=== PATIENT | female | born 1965 | race Caucasian/White ===

== ENCOUNTER 2023-02-28 06:55 | Outpatient (REF) | payer OTHER, SELFPAY ==
[2023-02-28 08:34] LABS: Anion Gap 14 (12-20); Blood Urea Nitrogen 12 mg/dL (9-16); Calcium 9.6 mg/dL (8.4-10.2); Carbon Dioxide 28 mmol/L (22-29); Chloride 106 mmol/L (96-108); Cholesterol 225 mg/dL; Estimated Glomerular Filt Rate > 60; Glucose Random 81 mg/dL (60-115); HDL Cholesterol 90 mg/dL; LDL Cholesterol Calculated 126 mg/dl; Potassium 4.7 mmol/L (3.3-5.1); Sodium 143 mmol/L (135-145); Triglycerides 47 mg/dL
[2023-02-28 08:52] LABS: Thyroid Stimulating Hormone 2.71 uIU/mL (0.32-4.0)
== END 2023-02-28 06:56 | disposition home or self-care (01) ==
LOC: HO.LAB 06:55
PROVIDERS: Visit Provider Family Medicine
DX: Z00.00 Encounter for general adult medical examination without abnormal findings (principal); E03.9 Hypothyroidism, unspecified
CPT/HCPCS: 36415; 80048; 80061; 84443

== ENCOUNTER 2025-02-19 09:25 | Outpatient (REF) | payer OTHER, SELFPAY ==
--- NOTE | ~2025-02-19 | XR_ITS ---
EXAMINATION: XR TOES 2 OR MORE VIEWS RIGHT HISTORY: acute pain swelling base of great toe COMPARISON: There are no prior studies available for comparison. FINDINGS: Three views of the right great toe are submitted. Osseous mineralization is normal. There is no fracture or dislocation. There is mild narrowing of the interphalangeal joint. The soft tissues are unremarkable. XR/XR toe RT min 2V IMPRESSION: Mild narrowing of the interphalangeal joint. No evidence of fracture of the right great toe. Electronically signed by: Oscar Palmer MD 02/19/2025 09:59 AM EDT
--- OUTSIDE RECORDS SUMMARY | 2025-02-19 10:03 | XMS_ITS | Data Portability ---
Author Organization [facility], , [facility] Address [address] [place] [address] Care Team Providers Care Enrollment Services Dean Name Role Phone ESTELLA ANDREA Rac Specialist JACKSON GRIMES Putty Tinter Maker ROBYN TIWARI Primary Care Provider [phone] [facility] Technology Resource Teacher ENEDELIA [facility] Orthopedist DEWEY DAVIS Passementerie Worker Assessment Encounter Date Assessment Date Assessment LastModified by Organization Details LastModified Time 09/20/2022 09/20/2022 Patient agreed t o this visit via a secure telehealth platform due to the COVID -19 pandemic. Patient understands this is a scheduled visit and the usual procedures with regard to billing and confidentiality apply. Patient was notified that the provider location is [facility] [place] Patient location: home During the visit the patient? s medical history and medical record were reviewed. The patient was notified to call our office for worsening or urgent symptoms. Not available 09/20/2022 14:47:40 08/18/2023 08/18/2023 day 2 positive minor cold had taken paxlovid in past rvigderman Not available 08/18/2023 12:16:20 Plan of Treatment Reminders Order Date Submit Date Provider Last Modified By Organization Details Last Modified Time Details Appointments Wellness Visit 30 2024 03:30P Lukas DARDEN NP Not available Not available Not available Lab hepatitis C virus Ab, serum [address] [facility], [address] [place], [address], 01/03/2024 11:22:57 TSH, serum or plasma [address] [facility], [address] [place] [address], [address], 01/02/2024 14:56:33 bacterial vaginosis + vaginitis panel, vaginal - source: vaginal [address] [facility], [address] [place] [address], [address], 03/09/2023 14:25:25 pap, LB + HPV - Pap smear with HPVIs this patient on hormones? (Y/N) If yes, what type? 2022 023 [facility] (Pathology), [address] [place] [address], [address], 03/12/2023 08:45:01 Referral None recorded. Procedures None recorded. Surgeries None recorded. Imaging MAMMO, screening , tomosynth esis, bilateral - 2nd Look Consult/D iag Mammo/US Breast/Gu ided Asp/Breas t Bx/Clip Placement , as clinicall y indicated . 2023 024 [email or web address] Not available 11/03/2024 09:16:05 Medication Orders levothyro xine 25 mcg tablet 2023 024 [facility], [address] [place], [address], 01/02/2024 09:12:53 nirmatrel vir 300 mg (150 mg x2)-riton avir 100 mg tablet,do se pack 2022 023 [place] [address] [facility], [address] [place], [address], 01/02/2024 08:35:01 Paxlovid 300 mg (150 mg x 2)-100 mg tablets in a dose pack 2022 023 [place] [address] [facility], [address] [place], [address], 01/02/2024 08:35:01 Paxlovid 300 mg (150 mg x 2)-100 mg tablets in a dose pack 2021 022 [place] [address] [facility], [address] [place], [address], 01/02/2024 08:35:01 Patient Targets Encounter Date Encounter Id Patient Goals Patient Target Last Modified By Organization Details Last Modified Time She will take paxlovid for COVIDSHe is on DOXY for LYME [email or web address] Not available 03/27/2023 10:05:09 Patient Instructions Encounter Date Encounter Id Patient Instructions Last Modified By Organization Details Last Modified Time 09/20/2022 [id number] A discussion regarding the use of Paxlovid treatment in the setting of COVID-19 infection was had with the patient. The patient qualifies for Paxlovid treatment. They are 12 years old or older and weight at least 40kg (88lbs). They have a positive COVID test (either PCR or antigen). Symptom onset was within 5 days. They do not have severe renal impairment (GFR >30). If the GFR is 30-60, the dose of the medication is reduced. eGFR >60: 300mg nirmatrelvir (two 150mg tablets) with 100mg ritonavir (one tablet). All 3 tablets taken together twice daily for 5 days, with or without food. ? eGFR 30-60: 150mg nirmatrelvir with 100mg ritonavir. Both tablets taken together twice daily for 5 days, with or without food. The patient was advised that the treatment is sent to a local pharmacy. We have checked availability through this website: https://www.mass. gov/info-details/ uzhfjshvyla-owc-q ncgigyft-bkjfd-tn erapeutic-treatme tqy-zbc-yowgz-19# [id number] tic-personal injury law specialist- This medication is authorized by the FDA for emergency use only. Data from clinical trials have shown that these treatments reduce the risk of ER visits, hospitalization, and in patients with mild to moderate symptoms, and those at high risk of complications. Side effects were discussed: 1. Allergic reactions are possible, notify the nurse with any concerning symptoms 2. Liver problems ? notify your provider if you experience loss of appetite, yellowing of the skin or eyes, dark colored urine, or pale colored stools. 3. Altered sense of taste 4. Nausea 5. High blood pressure 6. Muscle aches 7. This is medication is still being investigated so not all side effects are known at this time. How do I take PAXLOVID? PAXLOVID consists of 2 medicines: nirmatrelvir and ritonavir. - Take 2 pink tablets of nirmatrelvir with 1 white tablet of ritonavir by mouth 2 times each day (in the morning and in the evening) for 5 days. For each dose, take all 3 tablets at the same time. - If you have kidney disease, talk to your healthcare provider. You may need a different dose. - Swallow the tablets whole. Do not chew, break, or crush the tablets. - Take PAXLOVID with or without food. - Do not stop taking PAXLOVID without talking to your healthcare provider, even if you feel better. - If you miss a dose of PAXLOVID within 8 hours of the time it is usually taken, take it as soon as you remember. If you miss a dose by more than 8 hours, skip the missed dose and take the next dose at your regular time. Do not take 2 doses of PAXLOVID at the same time. Not available 09/20/2022 14:50:59 01/02/2024 [id number] -MBSR has a subset for insomnia to look into -Labwork today -Shingrix is two vaccines by 2-6 months -It is given at the pharmacy; please go there to receive it -Once you have both you are done (it is 90% effective) -The most common side effect is arm redness around the injection site and arm soreness. -Take a picture of your immunization card and upload it and staff can enter it to your chart Not available 01/02/2024 09:05:42 Reason for Referral None Reported. Results Created Date Observation Date Name Description Value Unit Range Abnormal Flag Note LastModifiedBy Organization Detail LastModifiedTime 03/07/2003/09/2023 BACTE RIAL VAGIN OSIS/ VAGIN ITIS bv, RNA BV NEG negati ve normal The aptim a BV assay is utili zed for the detec tion of ribos omal RNA from bactmelinda medley assoi cated with bacte rial vagin osis( BV), inclu ding Lacto bacil lis (L. gasse ri, L. crisp stus, and L. jense eugenia), Gardn erell a vagin rinku, and Atopo bium vagin ae. The assay repor ts a quali tativ e resul t for BV and does not repor t resul ts for indiv idual organ isms. Not Available [address], [address], 03/09/2023 14:25:25 03/07/20 23 03/09/2023 BACTE RIAL VAGIN OSIS/ VAGIN ITIS radames species group (C. albicans, C. tropicalis, C. parapsilosis ), RNA C. SPP NEG negati ve normal Not Available [address], [address], 03/09/2023 14:25:25 03/07/20 23 03/09/2023 BACTE RIAL VAGIN OSIS/ VAGIN ITIS radames glabrata, RNA C. GLA NEG negati ve normal Not Available [address], [address], 03/09/2023 14:25:25 03/07/20 23 03/09/2023 BACTE RIAL VAGIN OSIS/ VAGIN ITIS trichomonas vaginalis, RNA TRICH NEG negati ve normal Not Available [address], [address], 03/09/2023 14:25:25 03/07/20 23 03/12/2023 PAP TEST path report [facility] [address] [place] [address] Lab Direc tor: Rhonda granda MD MEDICAL APPOINTMENT SCHEDULER Cytol ogy Repor t Acces lea #: [id number] FINAL DIAGN OSIS A. PAP SMEAR (SURE PATH) CE: SPECI MEN ADEQU ACY: Satis facto ry for evalu ation ; trans forma tion zone prese nt. INTER PRETA TION: NEGAT WILMER FOR INTRA EPITH ELIAL LESIO N OR MALMIRIAM ABEL . Elect zhane talat Cara d Out By: Curtis Mckeon er, CT( CP) The Pap test is a scree margarito test prima rily for squam ous cance rs and precu rsors and has assoc iated false -nega tive and false -posi tive resul ts. New techn ologi es such as liqui d-bas ed prepa ratio ns may decre ase but will not elimi rosalino all false -nega tive resul ts. Regul ar sampl ing and follo w-up of unexp sherie d clini charly signs and sympt oms are recom kamlesh d to minim ize false negat wilmer resul ts. PROCE DURES /ADDE NDA HPV Testi ng (Requ ested ) Order ed Date: 023 A. PAP SMEAR (SURE PATH) CE: Human Papil flip Virus Test NEGAT WILMER for high- risk Human Papil flip Virus types 16, 18, 45 and the Othe r high risk probe set (Incl udes 31, 33, 35, 39, 51, 52, 56, 58, 59, 66, 68) Note: Testi ng perfo rmed by Linda ceballos HR-HP V pratibha sis. Clini charly corre latio n is advis ed. This HPV test was perfo rmed at [facility], [address] [facility]. This test has been FDA appro oscar for SureP ath cervi charly cytol ogy speci mens. The accur acy and preci lea of this test for all other speci men sourc es has been verif ied in the Cytop athol ogy Labor atory of the [facility] and has not been clear ed or appro oscar by the U.S. Food and Drug Admin istra tion. Clini charly corre latio n is advis ed. Joselin ctron icall y Cara d Out By: Ashlee Olmstead on 023 14:48 CLINI CHARLY HISTO RY Date of Last Menst rual Perio d: 016 Menst rual Histo ry: Post Menop ausal Other Clini charly Condi tions : Scree margarito Pap SPECI MEN SOURC E A: PAP SMEAR (SURE PATH) CE Patie nt Name: SOLO NICHOLS : 1964 (Age: 57) Sex: F 4 Insti tutio n: [facility] Locat ion: [facility]Y Date of Colle ction : 2022 Date of Acces lea: 023 Repor renée: 023 08:43 Resul ts to: Tasha stokes MD Not Available [facility] (Outpatient) [address] [place] [address], [address], 03/12/2023 08:45:01 01/02/20 24 01/02/2024 LIPID PANEL cholesterol 265 mg/dL <200 mg/dl Sheeba able 200-2 39 mg/dl Borde rline High >240 mg/dl High Not Available [address], [address], 01/02/2024 14:07:36 01/02/20 24 01/02/2024 LIPID PANEL triglyceride s 87 mg/dL <150 mg/dL Roberta l 150-1 99 mg/dL Borde rline High 200-4 99 mg/dL High >500 mg/dL Very High Not Available [address], [address], 01/02/2024 14:07:36 01/02/20 24 01/02/2024 LIPID PANEL direct HDL 117 mg/dL <40 mg/dl - Major Risk for CHD >60 mg/dl - Negat wilmer Risk for CHD Not Available [address], [address], 01/02/2024 14:07:36 01/02/20 24 01/02/2024 DIREC T LDL direct LDL 121 mg/dL RISK CATEG ORY LDL GOAL _ CHD or CHD Risk Equiv alent s <100 mg/dl (10-y ear risk >20%) 2+ Risk Facto rs <130 mg/dl (10-y ear risk <= 20%) 0-1 Risk Facto r? <160 mg/dl ? Almos t all peopl e with 0-1 risk facto r have a 10 year risk <10%, thus 10 year risk asses ment in peopl e with 0-1 risk facto r is not neces miya. Not Available [address], [address], 01/02/2024 14:07:37 01/02/20 24 01/02/2024 TSH TSH 2.70 uIU/m L 0.50-6 .00 The Ameri can Colle ge of Endoc rinol ogy and Ameri can Thyro id Assoc iatio n recom mend goal TSH value s betwe en 0.4-4 .0 mIU/m L. Not Available [address], [address], 01/02/2024 14:56:33 01/02/20 24 01/03/2024 HEPAT ITIS C AB W/REF L TO HCV RNA, QN, PCR hepatitis C antibody NON-RE ACTIVE non-re active normal HCV antib jersey was non-r eacti ve. There is no labor atory evide nce of HCV infec tion. In most cases , no furth er actio n is requi red. Howev er, if recen t HCV expos ure is suspe cted, a test for HCV RNA (test code 41019 ) is sugge sted. For addit ional infor matio n pleas e refer to http: //[facility] catio n.que stdia gnost ics.c om/fa q/FAQ 22v1 (This link is being provi ded for infor matio nal/ educa viraj l purpo ses only. ) Not Available [facility] [address] [place] [address] [place], [address], 01/03/2024 11:22:57 08/29/20 24 09/01/2024 ANATO BEV PATHO LOGY path report [facility] [address] [place] - Jace conteh [place] [id number] Lab Direc tor: Dennis rubio MD Surgi charly Patho logy Repor t Acces lea #: [id number] FINAL PATHO LOGIC DIAGN OSIS: A. DUODE NUM, BIOPS Y: No patho logic abnor malit y. B. STOMA CH ANTRU M, BIOPS Y: Mild react wilmer foveo lar hyper plasi a witho ut infla mmati on, nolan tible with react wilmer gastr opath y. C. GASTR OESOP HAGEA L JUNCT ION AT 36 CM, BIOPS Y: Squam ocolu mnar junct ion with react wilmer palm es. Negat wilmer for intes tinal metap lasia and dyspl eli. Note: Immun ohist ochem ical stain s for H. pylor i are perfo rmed on the gastr ic biops ies and DO NOT DEMON STRAT E organ isms with the morph ologi c john cteri stics of Helic obact er. Joselin ctron icall y Cara d Out By Dennis rubio MD By his/h er signa ture above , the patho logis t liste d as adolfo carcamo the Final Diagn osis certi fies that he/sh e has perso audelia revie wed this case and confi rmed or corre cted the diagn osis. CLINI CHARLY HISTO RY Epiga stric abdom inal pain, Early satie ty, Nause a, Weigh t loss SPECI MENS SUBMI TTED: A: DUODE NUM, BIOPS Y B: STOMA CH ANTRU M, BIOPS Y C: GASTR OESOP HAGEA L JUNCT ION AT 36 CM, BIOPS Y GROSS DESCR IPTIO N A. DUODE NUM, BIOPS Y: Forma ajay: 6 fragm ents 0.1-0 .2 cm, entir kimmie submi tted A1. B. STOMA CH ANTRU M, BIOPS Y: Forma ajay: 3 fragm ents 0.2-0 .3 cm, entir kimmie submi tted B1. C. GASTR OESOP HAGEA L JUNCT ION AT 36 CM, BIOPS Y: Forma ajay: 3 fragm ents 0.1-0 .2 cm, entir kimmie submi tted C1. DN 08/29 Gross ing Staff : MARISELA One or more of the reage nts used in immun ohkimmie catalan ical testi ng in this case may not have been clear ed or appro oscar by the U.S. Food and Drug Admin istra tion (FDA) . The FDA has deter mined that such clear ance or appro britni is not neces miya. These tests are used for clini charly purpo ses. This shoul d not be regar ded as inves tigat ional or for resea rch. These reage nts' perfo rmanc e john cteri stics have been deter mined by the [facility]. This labor atory is certi fied under the Clini charly Labor atory Impro vemen t Amend ments of 1987 (CLIA -88) as quali fied to perfo rm high compl exity clini charly labor atory testi ng. Immun ohist alayna istry is perfo rmed on forma ajay-f ixed paraf fin-e mbedd ed secti ons (unle ss other landrum speci fied) and on a Bench oscar Ultra immun ostai ner which utili zes a propr ietar y polym er detec tion syste m. Posit wilmer, negat wilmer and inter nal contr ols, when prese nt, stain appro priat kimmie. Patie nt Name: SOLO JUAREZ : 1964 (Age: 59) Sex: F 4 Insti tutio n: [facility] Locat ion: [facility] DODEP Date of Opera tion: 08/29 Date of Acces lea: 08/29 Repor renée: 09/01 14:25 Resul ts To: Elpidio stokes MD Not Available [facility] (Outpatient) [address] [place] [address], [address], 09/01/2024 16:45:56 06/22/20 23 06/22/2023 xr wrist 3 or more views (righ t) This image report has been auto-f inaliz ed and has not been read by a Radiol ogist. Interp retati on has been includ ed in the provid er encoun ter note for this date of darnell lawrence. Final result ROBYN bentley [facility] [address] [place] [address], [address], 06/22/2023 14:36:02 10/12/19 25 10/10/2024 MAMMO , scree margarito, tomos ynthe sis, bilat eral, w/ CAD BI MAMMOG RADHA SCREEN ING WITH TOMOSY NTHESI S WITH CAD (BILAT ERAL) Additi onal patien t inform ation: Screen ing. COMPAR RUCHI: Compar ruchi is made with releva nt prior imagin g. Breast compos ition: The breast tissue is hetero geneou sly dense which may obscur e small masses . FINDIN GS: Benign calcif icatio ns in both breast s. Mass in the left upper outer quadra nt corres ponded to a cyst on prior ultras ound. The parenc hymal patter n is stable . No abnorm al masses , suspic ious calcif icatio ns, or other signif icant findin gs are identi fied mammog raphic ally in either breast . IMPRES LEA: No mammog raphic eviden ce of malign nara in either breast . Annual screen ing mammog elizabeth is recomm ended. BI-RAD S 2 BENIGN The patien t will be notifi ed of the result s and recomm endati ons. Electr onical ly Signed by: Christian conteh on 10/12/19 7:58 PM Interp reted by: Christian Ackerman DO Signed by: Christian Ackerman DO 10/12/24 Final result Screen ing mammo, last mammo done on 2 birads 2. NCFP. -SOC ROBYN YOO [facility] [address] [place], [address], 10/13/2024 09:06:31 10/12/1910/10/2024 MAMMO , jyotie margarito No observ ation record ed. [facility] ([facility]) - Callback Orders Only [address] [place], [address], 10/13/2024 09:06:31 Result Notes None recorded. Problems Name Problem SNOMED Code Status Onset Date Resolution Date Notes Provider Name and Address Organization Details Recorded Time Irritable bowel syndrome 24840562 Active Robyn Tiwari [address] [place], [place] [address], [address], [facility] 2 11:34:08 Hypothyroid ism 48325455 Active Robyn Tiwari [address] [place], [place] [address], [address], [facility] 2 11:38:08 Achilles tendinitis 01045388 Active Robyn Doherty [facility] [place], [address], [facility] 2 11:50:41 Malignant melanoma 124919814 Active 2024 in situ - anterior right thigh - [facility] derm Jayla Hoffman PA-C [address] [place], [place] [address], [address], [facility] 5 09:09:09 Problem Notes None recorded. Procedures Surgical History Date Name Laterality Status Provider Name and Address Organization Details Recorded Time 01/02/20 24 Cardiovascular disease risk reduction counseling completed Robyn Tiwari [address] [place] [address], [phone], [facility] 01/02/2024 08:58:02 06/16/20 16 Kana - Colonoscopy completed Justin Roger [address] [place] [address], [place], [address], [facility] 06/16/2016 09:57:16 Imaging Results Imaging Date Name Status LastModified by Organiz ation Details LastModified Time 06/22/2023 xr wrist 3 or more views (right) [facility] [address] [place], [address], 06/22/2023 14:36:02 10/10/2024 MAMMO, screening, tomosynthesis, bilateral, w/ CAD completed [facility] [address] [place], [address], 10/13/2024 09:06:31 10/10/2024 MAMMO, screening completed [facility] ([facility]) - Callback Orders Only [address] [place], [address], 10/13/2024 09:06:31 Procedure Notes None recorded. Medical Equipment None Reported. Allergies No known drug allergies Medications Name Sig Start Date Stop Date Status Note LastModified by Organization Details LastModified Time cyclobenza ritu 10 mg tablet 07/26 completed Not Available Not Available Not Available amoxicilli n 500 mg capsule TAKE ONE CAPSULE BY MOUTH THREE TIMES A DAY 08/18 completed Not Available Not Available Not Available prednisone 10 mg tablet 07/26 completed Not Available Not Available Not Available fluorourac il 5 % topical cream APPLY ONCE DAILY TO FOREHEAD FOR 2 TO 3 WEEKS. 03/07 completed done 022 xr Not Available Not Available Not Available prochlorpe razine maleate 10 mg tablet 07/26 completed Not Available Not Available Not Available levothyrox ine 25 mcg tablet TAKE TWO AND ONE-HALF TABLETS BY MOUTH EVERY DAY ON AN EMPTY STOMACH - Needs labs for further refills 2024 active Not Available Not Available Not Avai lable propranolo l 10 mg tablet TAKE 1 TABLET BY MOUTH 30 MINUTES PRIOR TO PRESENTA TION active Not Available Not Available No t Available levothyrox ine 50 mcg tablet 07/26 completed Not Available Not Available Not Available clindamyci n 2 % vaginal cream 07/26 completed Not Available Not Available Not Available estradiol 0.01% (0.1 mg/gram) vaginal cream INSERT 1 GRAM VAGINALL Y THREE TIMES A WEEK 01/01 completed Not taking 01/02/24 cc Not Available Not Available Not Available doxycyclin e hyclate 100 mg tablet TAKE ONE TABLET BY MOUTH TWICE A DAY FOR 21 DAYS. 08/18 completed Not Available Not Available Not Available progestero ne micronized 100 mg capsule TAKE TWO CAPSULES BY MOUTH AT BEDTIME 01/01 completed Not taking 01/02/24 cc Not Available Not Available Not Available nitrofuran toin monohydrat e/macrocry stals 100 mg capsule 07/26 completed Not Available Not Available Not Available Amitiza 8 mcg capsule Take 1 capsule twice a day by oral route. 2023 active Not Available Not Available Not Avai lable GaviLyte-G 236 gram-22.74 gram-6.74 gram-5.86 gram oral solution 07/26 completed Not Available Not Available Not Available Lo Loestrin Fe 1 mg-10 mcg (24)/10 mcg (2) tablet 07/26 completed Not Available Not Available Not Available Narcan 4 mg/actuati on nasal spray 07/26 completed Not Available Not Available Not Available Motegrity 2 mg tablet TAKE ONE TABLET BY MOUTH EVERY DAY 2023 active Not Available Not Available Not Avai lable Paxlovid 300 mg (150 mg x 2)-100 mg tablets in a dose pack TAKE 2 NIRMATRE LVIR TABLETS AND 1 RITONAVI R TABLET ORALLY. ALL THREE TABLETS SHOULD BE TAKEN TOGETHER TWICE A DAY FOR 5 DAYS. 01/01 completed Not Available Not Available Not Available Vitals Date Recorded Body height Body mass index (BMI) Body weight Body temperature Provider Name and Address Organization Details Last Updated DateTime 09/20/2022 167.64 cm 21.8 kg/m2 33968.97 g 98.7 [degF] Rhona German CMA [facility] 09/20/2022 14:32:29 Date Recorded Body height Body mass index (BMI) Body weight Heart rate Systolic blood pressure Diastolic blood pressure Provider Name and Address Organization Details Last Updated DateTime 3 167.64 cm 22.3 kg/m2 89796.7 5 g 68 /min 116 mm[Hg] 70 mm[Hg] Porsche conteh, [facility] 3 12:00:30 Date Recorded Body height Body mass index (BMI) Body weight Body temperature Provider Name and Address Organization Details Last Updated DateTime 03/27/2023 167.64 cm 22.1 kg/m2 97811.15 g 101.8 [degF] Kristyn Drummondshanon monroe, [facility] 03/27/2023 09:34:13 Date Recorded Body height Body temperature Heart rate Provider Name and Address Organization Details Last Updated DateTime 08/18/2023 167.64 cm 100.6 [degF] 68 /min Edouard Albert [facility] 08/18/2023 11:52:03 Date Recorded Body height Body mass index (BMI) Body weight Heart rate Systolic blood pressure Diastolic blood pressure Provider Name and Address Organization Details Last Updated DateTime 4 167.64 cm 21.8 kg/m2 21303.9 7 g 70 /min 114 mm[Hg] 68 mm[Hg] Kenzie Silver MA [facility] 4 08:39:23 Social History Question Answer Notes LastModified by Organizat ion Details LastModified Time Tobacco Smoking Status [facility] 07/26/2022 11:27:29 Do You Wear A Helmet When Biking? Yes Information not available 07/26/2022 What Is Your Level Of Caffeine Consumption? Heavy Information not available 07/26/2022 What Type Of Diet Are You Following? GLUTENFREE Dairy Free, Modified FODMAP Diet (getting Fiber Via Cellulose Fiber In Smoothie) IBS-C Information not available 01/02/2024 What Is The Highest Grade Or Level Of School You Have Completed Or The Highest Degree You Have Received? [id number] MD [email or web address] Information not available 07/26/2022 Have There Been Any Changes To Your Family Or Social Situation? No Lives Alone, Dog And Cat Information not available 01/02/2024 Are There Any Guns Present In Your Home? No Information not available 07/26/2022 Do You Use Insect Repellent Routinely? Yes Information not available 07/26/2022 Patient Has Health Care Proxy Signed And In Chart Yes [email or web address] Information not available 01/03/2024 What Was The Date Of Your Most Recent Tobacco Screening? 01/02/2024 [email or web address] Information not available 01/02/2024 How Many Children Do You Have? 0 Information not available 07/26/2022 Are There Any Occupational Health Risks Where You Work? COVID? Information not available 07/26/2022 What Is Your Relationship Status? Single Information not available 07/26/2022 Do You Use Your Seat Belt Or Car Seat Routinely? Yes Information not available 07/26/2022 Are You Sexually Active? No Information not available 07/26/2022 Do You Have Smoke And Carbon Monoxide Detectors In Your Home? Yes Information not available 07/26/2022 Are You Passively Exposed To Smoke? No Information not available 07/26/2022 Do You Use Sunscreen Routinely? Yes Information not available 07/26/2022 How Many Days In The Past Year Have You Consumed 4 Or More Drinks? 0 Information not available 07/26/2022 Sex: Female Functional Status Question Answer Note LastModified by Organizat ion Details LastModified Time Do you use any illicit or recreational drugs? No Information not available 07/26/2022 Do you or have you ever used any other forms of tobacco or nicotine? No Information not available 07/26/2022 What is your level of alcohol consumption? Moderate Information not available 07/26/2022 Are you currently employed? 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 Heavy walking, hiking, bicycling, yoga, dancing (CHELITA and ballroom dancing) Information not available 01/02/2024 Mental Status None recorded. Family History Relationship Description Onset Age of this Age Resolved Age Notes LastModified by Organization Details LastModified Time Father Malignant neoplasm of lung 68 hx heavy tobacc o - age 68 Not available 07/26/2022 11:39:49 Father Hypertensive disorder Not available 07/26 11:39:54 Father Alcoholism Not avail able 07/26/2022 11:39:59 Father Osteoarthrit is Not available 07/26 11:40:34 Father Depressive disorder Not available 07/26 11:52:48 Mother Hypothyroidi sm Not available 07/26 11:40:10 Mother Hypertensive disorder Not available 07/26 11:40:16 Mother Osteoarthrit is Not available 07/26 11:40:34 Mother Anxiety Not availabl e 07/26/2022 11:52:56 Brother Hyperlipidem ia Not available 07/26 11:40:55 Brother Hyperlipidem ia Not available 07/26 11:40:55 Brother Hypertensive disorder Not available 07/26 11:41:00 Brother Hypertensive disorder Not available 07/26 11:41:03 Brother Alcoholism Not avai lable 07/26/2022 11:41:12 Brother Alcoholism Not avai lable 07/26/2022 11:41:15 Maternal Grandfather Peripheral vascular disease heavy tobacc o - in late 70's likely cardia c Not available 07/26/2022 11:42:40 Maternal Grandmother Old-age 96 no health issues - 96 Not available 07/26/2022 11:42:19 Paternal Grandfather Malignant neoplasm of lung age 40-50s - heavy tobacc o Not available 07/26/2022 11:43:17 Paternal Grandmother Cerebrovascu lar accident late 70's, early 80's Not available 07/26/2022 11:43:35 Notes:No family hx breast/co bibi CA, no diabetes Medical History No medical history recorded. Gynecological HistoryNo gynecological history recorded. Obstetrics History GPAL:G 0 P 0 0 0 0 Immunizations Vaccine Type Date Status Note Provider Ant lawrence and Address Organization Details Recorded Time COVID-19, mRNA, LNP-S, PF, 100 mcg/0.5mL dose or 50 mcg/0.25mL dose 09/30/2020 [facility] 07/26/2022 15:23:10 COVID-19, mRNA, LNP-S, PF, 100 mcg/0.5mL dose or 50 mcg/0.25mL dose 10/28/2020 completed L[facility] 07/26/2022 15:24:02 Tdap 01/17/2022 completed [facility]ISA [facility] 02/26/2023 15:10:56 Past Encounters Encounter ID Performer Location Encounter Start Date Encounter Closed Date Diagnosis/Indication Diagnosis SNOMED-CT Code Diagnosis ICD10 Code Diagnosis Note [id number] Justin Roger [facility], [address] [address] 06/16/2016 08:37:07 06/16/2016 14:33:19 [id number] Robyn Tiwari , [facility], [address] [place] [address] 07/26/2022 11:16:36 07/26/2022 12:14:42 Active or passive immunization 246931999 Z23 UTD on all vaccines minus Shingles, will consider getting 07/26/22-a d Hypothyroidism 64545463 E03.9 Stable. Will order labwork Irritable bowel syndrome 74668507 K58.9 Stable on current medication . Will refill. Adult heal th examination 822507848 Z00.00 Counseling 026161815 Z71 .9 including cardiovasc ular risk reduction counseling Depression screening 171 621473 Z13.31 depression screening tool administer ed, entered into emr, scored and discussed, time greater than 7.5 minutes, Screening for alcohol abuse 477321114 Z13.39 [id number] Robyn Tiwari , [facility], [address]ICE [address] [place] [address] 09/20/2022 14:30:58 09/21/2022 15:31:06 Screening for malignant neoplasm of cervix 421060746 Z12.4 reminded Active or passive immunization 472340814 Z23 Reminded pt she is due for tetanus and shingles COVID-19 162641738 U07.1 [id number] Robyn Tiwari , [facility], [address] [place] [address] 03/07/2023 11:46:55 03/07/2023 13:00:45 Screening for malignant neoplasm of cervix 722960574 Z12.4 Active or passive immunization 408850846 Z23 Shingles- Not done Vaginal odor 945441348 N 89.8 Pt has hx of recurrent BV; she would rather use vaginal metronidaz ole (given hx of GI issues would rather not take oral). [id number] MD RICHIE Larry, [facility], [address] [place] [address] 03/27/2023 09:32:01 03/28/2023 09:33:08 COVID-19 767134425 U07.1 [id number] Oscar Zamudio MD , [facility], [address] [place] [address] 08/18/2023 11:47:45 08/22/2023 14:02:45 COVID-19 362733997 U07.1 02/28/2033 GFR >60minor course, but she wishes all she can do to avoid possibilit y of long covidshe has tolerated paxlovid in the pastrx paxlovid [id number] Robyn Tiwari , [facility], [address] [place] [address] 01/02/2024 08:27:12 01/02/2024 09:25:44 Adult health examination 145908258 Z00.00 Depression screening 171 608001 Z13.31 depression screening tool administer ed Screening for alcohol abuse 871351937 Z13.39 Alcohol use screening tool administer ed Active or passive immunization 179234268 Z23 No records in [facility] es- Not done, reminded 01/02/24 ccflu - already got 01/02/24 cc Screening mammography 24 911660 Z12.31 due 01/2024, scheduled 03/2024 Screening for disorder 451815155 Z11.59 ordered 01/02/24 cc Hypothyroidism 37263138 E03.9 Stable. Will order labwork Counseled by member of primary health care team 398999920 Z71.9 Today we discussed ways to reduce your 10-year cardiovasc ular disease risk. Things that decrease risk for cardiovasc ular events include eating a diet high in fiber (fruits and vegetables ) and low in simple carbohydra rey (bread, rice, pasta, alcohol, potatoes), decreasing processed foods, limiting juice and alcohol, limiting saturated fats (butter, ice cream, and cheeses), and adding regular daily activity. Having blood pressure that is <130/80. Having well controlled cholestero l (LDL and triglyceri grant) by eating a healthy diet and taking medication s when necessary. Managing daily stress with meditation or yoga/dorothy chi reduces the risk for heart attack, stroke, type 2 diabetes, and dementia Health Concerns Section Related Observation LastModified by Organization Detai ls LastModified Time None Recorded Concern Status LastModified by Organization Details LastModified Time None Recorded Advance Directives Directive None Recorded Payers Encounter Date Sequence Insurance Name Policy Number Policy Salomon Covered Member ID Salomon Member ID Guarantor Name 09/20/2022 1 [facility] [id number] 01 Remedios Barlow Dair [id number] Remedios Falcon 03/07/2023 1 [facility] [id number] 01 Remedios Barlow Dair [id number] Remedios Od 03/27/2023 1 [facility] [id number] 01 Remedios Barlow Dair [id number] Remedios Falcon 08/18/2023 1 [facility] [id number] 01 Remedios Gaytan O Dair [id number] Remedios Falcon 01/02/2024 1 [facility] [id number] 01 Remedios Barlow Dair [id number] Remedios Falcon Notes Date Note Type Note Provider Name and Address Organization Details Recorded Time 2 text/html Time for intake: {{1 2 3* 4 5 6 7 8 9 10 11 12 13 14 15 16 17 18 19 20 21 22 23 24 25}} minutes.Pt met with via telehealth video visit c/o COVID. pt started feeling poorly yesterday afternoon with a mild headache. She woke up in the middle of the night with a significant headache, vomiting, diarrhea. She has had a mildly scratchy throat. No fever, no respiratory symptoms. She currently has mild nausea. Robyn Ramon Tiwari [address] [place], [address], [facility] 09/20/2022 14:55:28 3 text/html Pt comes in today for pap smear; LMP around age 51/52. Hx of recurrent BV, some mild odor currently. She otherwise doesn't have any symptoms. Robynasmita Tiwari [address] [place], [address], [facility] 03/07/2023 12:27:29 3 text/html 03/27/23 Triage Note Pt currently being treated for Lyme disease with doxycycline. Would like to discuss paxlovid. Tested positive for covid this am. Started doxy yesterday for Lyme rashTested pos for COVID today , also had COVID 09/28 Elpidio Puckett MD [address] [place] [address], [phone], [facility] 03/27/2023 10:06:11 3 text/html pt is in for virtual visit urgent care regarding covid positive- discuss treatment, pt tested positive this morning, pt experiencing sore throat, dry cough, nasal congestion, fever, pt denies difficulty breathing & body aches Oscar Zamudio MD [address] [place], [address], [facility] 08/18/2023 12:17:07 4 text/html Physical Exam/FemaleReported bypatient.PHAPatient is here for a Wellness Visit. She describes her health status as good. Patient's health is the same as last year.Risk Assessment and Lifestyle Change Counseling 50-64Reported bypatient.Coronary Artery Disease Risk Assessment:No Family history of coronary artery disease (later onset); No personal history of diabetes; No history of peripheral vascular disease, AAA, or carotid disease; No personal history of coronary artery disease Breast Cancer Risk Assessment:No family history of breast cancer; No history of breast cancer or dcis Colon Cancer Risk Assessment:No family history of colon polyps or cancer; No history of adenomatous colon polyps Lung Cancer Risk Assessment:Never smoked; No asbestos exposure Cognitive/Behavioral Risk Assessment:Family history of mental illness Safety Risk Assessment:No evidence of abuse/neglect Diet:Counseled about eating a diet low in trans and saturated fats and high in fiber, fruits and vegetables (pt eating healthful diet) Exercise counseling:Discussed the importance of daily physical activity (pt regularly active) Family Planning:N/[facility] HypothyroidReported bypatient.Duration:chron ic (>20 years); Hashimotos thyroiditis Control:TSH 2-3; labwork done within past year Compliance:compliant with medications; compliant with follow-up visits Constitutional:no cold intolerance; no heat intolerance; no weight loss; no weight gain; No tremor; No fast heart rate Pt comes in today for wellness visit. Pt c/o insomnia. She tried progesterone to see if this would help, but it did not. She is trying not to take anything, but will take benadryl once in a while. Pt also c/o ongoing IBS, constipation predominant. She's still taking Atrantil that she researched when she was diagnosed with IBS ([place], [place], and Peppermint) in addition to Motegrity, which manages her symptoms well. Robyn Tiwari [address] [place] [address], [place], [address], [facility] 01/02/2024 09:18:38 OBGyn Episode No OBEpisode recorded.
--- OUTSIDE RECORDS SUMMARY | 2025-02-19 10:03 | XMS_ITS | Data Portability ---
[facility] Organization [facility] [address] [place] [address] Assessment Encounter Date Assessment Date Assessment LastModified by Organization Details LastModified Time 09/12/2023 09/12/2023 I spent 30 minutes of [id number]-odvd counselling and care coordination time with the patient. This includes reviewing medical records (medical, surgical, family and social history); updating medication and allergy information in the electronic health record; and ordering labs, medications, and education materials to continue patient care. Not available 09/12/2023 12:24:43 Plan of Treatment Reminders Order Date Submit Date Provider Last Modified By Organization Details Last Modified Time Details Appointments None recorded. Lab None recorded. Referral None recorded. Procedures None recorded. Surgeries None recorded. Imaging None recorded. Medication Orders progesteron e micronized 100 mg capsule 2022 023 [email or web address] [address] [place], [address], 12:34:35 estradiol 0.01% (0.1 mg/gram) vaginal cream 2022 023 [email or web address], [address] [place], [address], 12:34:35 Patient TargetsNo targets recorded. Patient Instructions Encounter Date Encounter Id Patient Instructions Last Modified By Organization Details Last Modified Time 09/12/2023 [id number] Vaginal Dryness [facility] Not available 09/12/2023 12:34:33 Any requested follow-up visits are listed below in the Plan of Care section. Go directly to the [facility] insurance claims adjuster at [email or web address] to book a time. Not available 09/12/2023 10:39:48 It was a pleasur e to meet with you today! We discussed your health concerns related to insomnia, vaginal dryness, and urge and stress incontinence. Your Care Plan Together, we decided that you would: - Start using an estrogen cream three times a week. This cream can be applied around your urethra and vaginally to help with the urge and stress incontinence. It comes in applicators, and you can put a little bit on your finger and apply it around your urethra where you feel the most urgent type of feeling. The rest can be applied intravaginally. We will likely reduce the frequency to twice a week after our next discussion. - Start taking oral progesterone (100 mg) at bedtime every night to aid with sleep and relaxation. If it doesn't work, we can increase the dosage to 200 mg. - Continue taking your current medications: Levothyroxine, magnesium, melatonin, and Motegrity. - Monitor your diet for any foods that might exacerbate your urge incontinence, such as caffeine, alcohol, spicy foods, and tomato products. - Follow-up appointment scheduled for October 24 at 11 am. - If you have any questions or concerns, or if your symptoms worsen, please reach out to me via the patient portal. Vaginal Estrogen Cream (Estrace vaginal cream): - This vaginal estrogen helps to restore vaginal PH and microflora, reduce dryness, and support healthy skin in and around the vagina. It may decrease irritation, pain with sex, bladder infections and symptoms of urinary urgency and frequency. - Insert 0.5 mg into the vagina and apply 0.5 mg to vulva every night at bedtime for 14 days, then twice weekly. - Get it from your pharmacy. Thank you for trusting us with your care! We have recommended the use of hormone therapy to treat your symptoms. Hormone therapy (HT) can help with many menopausal symptoms, though it is FDA approved for hot flashes, night sweats, vaginal symptoms, osteopenia, and for those in early or premature menopause. HT may have additional health benefits for bone, cardiac, and metabolic health depending on the age of initiation and years since menopause. Based on your personal medical and family history, you are a good candidate to try HT as you are close to the beginning of your menopause and have no history of stroke, blood clot, heart disease, breast or uterine cancer. Please know that fine-tuning and customization of your hormone therapy regimen are expected, and at follow-up visits, we will work with you to optimize your therapy. Keep in mind Hormone Therapy is not contraception, if you are under age 52 and still having periods be sure to discuss any need for control with your clinician. Please carefully review the care plan we decided upon, specific information regarding your medication, and important information about menopausal hormone therapy detailed below. Thank you for trusting us with your care! --- Oral Micronized Progesterone (Prometrium)? Continuous: - Available at your pharmacy - Purpose: Protects your uterus while you are taking estrogen and helps improve sleep quality - Dosage instructions: Take 100 mg orally at bedtime every night - Usage instructions: Take this medication before bed, as it may make you drowsy - Mild Side Effects: Cramping, bloating, and mild moodiness. It does cause some drowsiness, so be sure to take it at bedtime. Most patients enjoy improvement in restful sleep, but occasionally a person may feel groggy or tired the next day. - Severe Side Effects: Seek immediate medical attention if you experience severe mood changes - Contraindications: Those with peanut allergies due to peanut oil content -------- Please carefully read the section below which includes potential risks associated with the treatment -------- ----- Not available 09/12/2023 12:39:40 Reason for Referral None Reported. Problems Name Problem SNOMED Code Status Onset Date Resolution Date Notes Provider Name and Address Organization Details Recorded Time Menopausal symptom 81481787 Active 023 Amina Post, [employer] [address] [place], [place], 2, [employer] 3 10:39:49 Insomnia 754687070 Active 023 Amina Post, [employer] [address] [place], [address], [employer] 3 12:25:06 Vaginal dryness 90981905 Active 023 Amina Post, [employer] [address] [place], 2, [employer] 3 12:25:32 Health education given 007969602 Active 023 Amina Post, [employer] [address] [place], [address], [employer] 3 12:25:41 Problem Notes None recorded. Procedures Surgical History Date Name Laterality Status Provider Name and Address Organization Details Recorded Time 2 Date of Last Mammogram completed Amina Post, [employer] [address] [place], [place], , [employer] [facility] 09/12/2023 10:42:06 0 Date of Last Pap Smear completed Amina Post, [employer] [address] [place], , [employer] 09/12/2023 10:41:52 Imaging Results None recorded. Procedure Notes None recorded. Medical Equipment None Reported. Allergies No known drug allergies Medications Name Sig Start Date Stop Date Status Note LastModified by Organization Details LastModified Time ciprofloxaci n 250 mg tablet TAKE ONE TABLET BY MOUTH THREE TIMES A DAY FOR 10 DAYS active Not Available Not Available Not Available levothyroxin e 25 mcg tablet TAKE TWO AND ONE-HALF TABLETS BY MOUTH EVERY DAY ON AN EMPTY STOMACH active Not Available Not Available No t Available propranolol 10 mg tablet TAKE 1 TABLET BY MOUTH 30 MINUTES PRIOR TO PRESENTATIO N active Not Available Not Available No t Available bisacodyl 5 mg tablet,delay ed release TAKE 4 TABLETS BY MOUTH DIRECTED. active Not Available Not Available No t Available estradiol 0.01% (0.1 mg/gram) vaginal cream insert 1 gm PV 3 times a week 2022 active Not Available Not Available Not Avai lable progesterone micronized 100 mg capsule Take 2 capsules every day by oral route at bedtime for 30 days. 2022 active Not Available Not Available Not Avai lable magnesium active Not Available Not Rosanne ilable Not Available melatonin active Not Available Not Rosanne ilable Not Available levothyroxin e active Not Available Not Available Not Available GaviLyte-G 236 gram-22.74 gram-6.74 gram-5.86 gram oral solution ONCE MIXED, TAKE 4,000 ML. DIRECTED. active Not Available Not Available No t Available Motegrity 2 mg tablet TAKE ONE TABLET BY MOUTH EVERY DAY active Not Available Not Available No t Available Vitals Date Recorded Body height Body mass index (BMI) Body weight Provider Name and Address Organization Details Last Updated DateTime 09/12/2023 167.64 cm 21.8 kg/m2 40826.97 g Amina [place], [employer] [address] [place], [address], [facility] 09/12/2023 10:43:21 Social History None recorded. Functional Status None recorded. Mental Status None recorded. Family History Nothing Reported. Medical History Condition Response Headaches Y Gynecological History Statement/Question Response Date of Last Pap Smear 10/08/2019 Date of Last Mammogram 10/08/2021 Date of LMP 10/08/2016 Approximate Obstetrics History GPAL:G 0 P 0 0 0 0 Past Encounters Encounter ID Performer Location Encounter Start Date Encounter Closed Date Diagnosis/Indication Diagnosis SNOMED-CT Code Diagnosis ICD10 Code Diagnosis Note [id number] Amina Mason NP Main Office [address] [place] [address] 09/12/2023 10:01:24 09/13/2023 07:06:04 Urge incontinence of urine 24285932 N39.41 - The patient's intermitte nt urge incontinen ce is likely related to hormonal changes post-menop ause.- Prescribed a vaginal estrogen cream to be applied around the urethra and vaginally three times a week to help manage the urge incontinen ce.- Educated the patient on dietary triggers that can exacerbate urge incontinen ce, such as caffeine, alcohol, and spicy foods.- If symptoms persist or worsen, will consider specific medication s targeted for urge incontinen ce. Insomnia 073802480 G47.0 0 - The patient's insomnia is a common symptom in postmenopa usal women and can be exacerbate d by hormonal changes.- Prescribed oral progestero ne 100mg at night to aid with sleep and promote relaxation .- The patient can continue using magnesium and melatonin supplement s along with the prescribed progestero ne.- If sleep does not improve, the dosage of progestero ne can be increased to 200mg. Postmenopausal state 764 76865 Z78.0 - The patient's postmenopa usal status is likely contributi ng to her symptoms of urge incontinen ce, vaginal dryness, and insomnia.- Prescribed a combinatio n of vaginal estrogen cream and oral progestero ne to manage these symptoms.- Scheduled a follow-up appointqueta t in one month to assess the effectiven ess of the treatment plan and make necessary adjustment s. Vaginal dryness 30686290 N89.8 -Remedios feels she has vaginal dryness, which is very common with post menopause- Will begin Estrace 1gm vaginal 3 times a week- will reevaluate in 4 weeks Health edu cation given 216368298 N95.9 Health Concerns Section Related Observation LastModified by Organization Detai ls LastModified Time None Recorded Concern Status LastModified by Organization Details LastModified Time None Recorded Advance Directives Directive None Recorded Payers Insurance Date Sequence Insurance Name Policy Number Policy Salomon Covered Member ID Salomon Member ID Guarantor Name 09/07/2023 1 *SELF PAY* Ty Warren Notes Date Note Type Note Provider Name and Address Organization Details Recorded Time 3 text/html Virtual Visit Attestation Modality: Video Provider Location: Home Patient Location: {{Home* Work Other}} Patient State: {{[place] JOHN GONZALEZ* [place] [facility]} } [{{? * }}]I have obtained consent from the patient for use of autoscribe. Preventive Care Date of LastMammogram: 10/08/21date of last Pap 10/09/16 Remedios is a , 58 year old female presenting with concerns about insomnia, vaginal dryness, and urge and stress incontinence, which she believes are related to hormonal issues. Insomnia:- Patient reports significant issues with insomnia, which is a major concern for her.- She follows a good sleep routine and takes a magnesium and melatonin supplement at night before bed.- She avoids chocolate and caffeine, and is physically active, doing yoga. Vaginal Dryness and Urge and Stress Incontinence:- Patient is experiencing vaginal dryness and intermittent episodes of urge and stress incontinence.- She has not sought medical attention for the incontinence yet, but when it occurs, it is significant.- She believes these issues are hormonal, as she has not had a period in six or seven years.- She has used a bit of estrace cream and estrogen applied around the affected area, which has provided some relief.- She has previously used a bio-identical estriol, progesterone combination, and a little testosterone for a couple of years, but did not notice much change in her symptoms.- She is not currently sexually active, but would like to be in the future and wants to address these issues with that in mind. Past Hormonal Therapy:- Patient used a bio-identical estriol, progesterone combination, and a little testosterone transdermally for a couple of years.- She did not notice much change in her symptoms, which at the time were primarily hot flashes and insomnia.- She reports that hot flashes are now infrequent and not as severe as they used to be. Current Medications:- Patient is currently on Levoxine, magnesium, melatonin, and Motegrity. 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 When she does get headaches, they are mostly tension headaches and ibuprofen takes care of it.- She is up to date with her mammograms. PMHx:- Insomnia- Vaginal dryness- Urge and stress incontinence- Migraines PSHx:- Staples teeth removal Current Meds:- Levothyroxine- Magnesium- Melatonin- Motegrity Allergies:- NKDA Social Hx:- Caffeine Use: Drinks 1 cup of coffee in the morning- Physical Activity: Does yoga- Occupation: Practicing physician- Alcohol Use: Not mentioned- Illicit Drug Use: Not mentioned- Education: Not mentioned- Relationship status: Not mentioned- Number of children: Not mentioned- Living conditions: Not mentioned- Diet habits: Not mentioned- status: Not mentioned- Sexual practices: Not currently sexually active Miguelina patient [id number], with menses reported as No periods in over 12 months (postmenopause), presents to [facility] for a telehealth visit.Additional notes from patient: Urge/stress incontinence Preferred Name: [facility] SYMPTOM ASSESSMENTS1. Hot Flash + Night SweatsSeverity (qualitative): Mild2. Trouble SleepingPROMIS Score = 59.3Severity (qualitative): Very Severe3. MoodGAD-7 Score = 6 (Mild Anxiety)PHQ-8 Score = 5 (Mild Depression)Severity (qualitative): MildExperiencing more anger than usualLevel of difficulty due to these problems to do work, take care of things at home, or get along with other people: Somewhat difficult4. Weight + Body ChangesGained Unknown. UnknownUsed Unknown for weight lossSurgical weight loss treatments: Unknown5. Painful Sex, Vaginal Dryness + Libido ChangeSeverity (Qualitative): ModerateFSFI Score = 3Degree of Sexual Desire or Interest: Very low or none at allDifficulty Maintaining Lubrication until Completion of Sexual Activity: No sexual activityFrequency of Pain or Discomfort during Vaginal Penetration: Did not attempt intercourse6. Brain FogSeverity (qualitative): MildSeverity of impact to work (quantitative): 02/14Description of impact: I have had a really hard time sleeping this week and it's making me feel very spacy and foggy. 7. Hair + Skin ChangesSeverity of hair+skin changes: None8. Joint pain + Bone Loss + Fracture RiskSeverity (qualitative): MildSeverity of impact to work (quantitative): 11/17--PAST MEDICAL HISTORYMigraines, Thyroid disorderNo breast cancerAny other cancers: None; Dates: Unknown--GYNECOLOGY HISTORYGYN HxLMP:Menstrual stage reported: No periods in over 12 months (postmenopause)OBHxRepor ts not likely to be [id number] HxPatient is not sexually activeCurrent Contraception: I used contraception in the past Details: Unknown, since: UnknownPast Contraception: Oral contraceptive, Contraceptive ring (e.g. NuvaRing), Condoms, Foam, DiaphragmGYN SURGICAL HxNone of the above- Reason: UnknownHRT HxPatient is or has used HRT: Systemic (pills, patch, spray, gel, vaginal ring (Femring)- Details: Unknown--FAMILY HISTORYFamily? s medical history: None of the aboveWhich family member: Unknown--SOCIAL HISTORYCurrently working: [employer], Physician Race/ethnicity : White (Eg: Sammarinese, Bulgarian, Bolivian, Vietnamese, Cypriot, Tanzanian, etc)Sex assigned at : FemaleCurrent Gender: Female; She/HerRelationship and orientation: Single, Straight or heterosexualDIETSpecial Diet: GF, dairy-free, mostly legume-free, semi-FODMAPEXERCISEExerc ise regimen: Daily walking, or some combo of yoga, dance, cyclingSMOKINGStatus: Never smokerPacks per day (current):UnknownPacks per day (past): UnknownStart year:UnknownQuit year: UnknownETOHReported drinks: Glasses of wine: 6, Cans of beer or cider: 0, Shots of liquor: 0,CBDDoes not use CBDRECREATIONAL DRUGSDenies THC useDenies other recreational drugs--SCREENING AND HEALTH CARE MAINTENANCEPap Smear:Last Pap: 10/08/2018Abnormal paps: False, Details: UnknownMammogram:Last mammogram: 1Abnormal mammograms: False. Additional Details: Unknown, UnknownBreast Biopsy: Performed on approx. Unknown, results were Unknown Bone HealthBMD: UnknownNo past fracturesNo steroid useMENTAL HEALTHHistory of abuse: None; No abuse counselingGAD-7 Score = 6PHQ-9 Score = 5--GENERAL HEALTHBMI = 22Height in inches: 66Weight in pounds: [address] [place] [address] [place], [address], [facility] 09/16/2023 13:32:33 OBGyn Episode No OBEpisode recorded.
--- OUTSIDE RECORDS SUMMARY | 2025-02-19 10:03 | XMS_ITS | Clinical Summary ---
Author Organization [facility] [employer] Address [address] [place] [address] Care Team Providers Care Circuits Engineer Name Role Phone Jimbo Kimble MD Primary Care Provider [phone] Allergies Active Allergy Reactions Criticality Noted Date Comments Attends Briefs Small Rash Low 10/08/2014 Medications Prucalopride Succinate (Motegrity) 2 MG tablet Take by mouth. Active levothyroxine (Synthroid, Levoxyl) 25 MCG tablet Take by mouth before breakfast. Active predniSONE (Deltasone) 20 MG tablet Take 1 tablet (20 mg) by mouth 2 times daily for 5 days. 10 tablet 02/19/2025 Active Hospital, Clinic, or Other Facility Administered Medication Ordered Dose Route Frequency Start Date End Date Status ketorolac (Toradol) injection 30 mgIndications:Pain of left great toe 30 mg IM Once 02/19/2025 02/24/2025 Active Active Problems Problem Noted Date Diagnosed Date Hyperthyroiditis 12/26/2024 Achilles tendinitis 12/26/2024 Anxiety 12/26/2024 Disorder of intestine 12/26/2024 Disorder of thyroid 12/26/2024 Irritable bowel syndrome 12/26/2024 Migraine headache 12/26/2024 Malignant melanoma 12/04/2024 Insomnia 09/12/2023 Menopausal symptom 09/12/2023 Unspecified menopausal and perimenopausal disord er 09/12/2023 Vaginal dryness 09/12/2023 Lesion of cervix 08/12/2019 Primary localized osteoarthritis of hip 08/12/20 Acquired hypothyroidism 05/03/2018 Encounters Date Type Department Care Team Description 02/19/2025 9:00 AM EDT Office Visit [facility] [address] [place] [address] Great toe pain, right (Primary Dx); Pain of left great toe 12/26/2024 2:00 PM EDT Office Visit [facility] [address] [place] [address] Eb Torres, ARLEN Hyperthyroiditis (Primary Dx) 12/25/2024 Travel from Last 3 Months Immunizations Immunization Administration Dates Next Due Influenza Injectable Quadriv alant Preservative Free IIV4 MDCK 06/28/2023,06/27/2022,06/23/2021,06/24 Influenza injectable quadriv alent IIV4 with preservative 06/18/2019,06/19/2018 Influenza, Unspecified 06/13/2019,06/22/2018 Influenza, seasonal, injecta ble, preservative free 07/09/2024 PPD Test 08/20/2009 Pfizer Covid-19 Vaccine 12+ 07/31/2024 Rabies, IM Diploid Cell Culture 05/24/2018,05/17,05/13/2018 Rabies, intramuscular 05/10/2018 Td (adult), 5 Lf tetanus tox oid, preservative free, adsorbed 11/13/2011 Tdap 01/17/2022 Zoster, live 12/17/2015 Social History Tobacco Use Types Packs/Day Years Used Date Smoking Tobacco: Never Smokeless Tobacco: Never Tobacco Cessation:Counseling Given: Not Answered Comments Unknown Sex and Gender Information Value Date Recorded Sex Assigned at Female 08/07/2022 10:35 AM EDT Legal Sex Female 10:35 AM EDT Gender Identity Female 08/07/2022 10:35 AM EDT Sexual Orientation Straight 08/07/2022 10 :35 AM EDT Last Filed Vital Signs Vital Sign Reading Time Taken Comments Blood Pressure 122/69 02/19/2025 9:01 AM EDT Pulse 65 02/19/2025 9:01 AM EDT Temperature 36.8 ??C (98.2 ??F) 02/19/2025 9:01 AM ED T Respiratory Rate 16 02/19/2025 9:01 AM EDT Oxygen Saturation 99% 02/19/2025 9:01 AM EDT Inhaled Oxygen Concentration - - Weight 60.1 kg (132 lb 9.6 oz) 02/19/2025 9:01 A M EDT Height 167.6 cm (5' 6 ) 05/11/2022 12:08 AM EDT Body Mass Index 21.4 05/11/2022 12:08 AM EDT Plan of Treatment Upcoming Encounters Date Type Department Care Team (Late st Contact Info) Description 04/07/2025 2:00 PM EDT Office Visit [facility] [address] [place] [address] TheePorsche santoyo Health Maintenance Due Date Last Done Comments CT Colonography 1965 Colonoscopy 1965 Colorectal Cancer Screening 1965 Dental Oral Exam 1965 Dental X-Ray: Bitewings 1965 Dental X-Ray: Full Mouth 1965 Depression Screening 1965 FIT DNA/Cologuard 1965 FIT 1965 FOBT 1965 HIV Screening 1965 SDOH Screening 1965 Sigmoidoscopy 1965 Derm Melanoma Skin Check 1965 Alcohol/Substance Use Screening 1977 Hepatitis C Screening 1983 Hepatitis B Vaccines (1 of 3 - 19+ 3-dose series) 1984 Pap Smear 1986 Cervical Cancer Screening 1995 HPV/Cotest 1995 Pneumococcal Vaccine: 50+ Years (1 of 1 - PCV) 2015 Zoster Vaccines (2 of 3) 02/11/2016 12/17/2015 Dental Prophylaxis 07/17/2024 01/15/2024 Tobacco Screening 12/26/2025 12/26/2024 Mammogram 10/10/2026 10/10/2024, 010 12/2024, 01/24/2022, Additional history exists DTaP/Tdap/Td Vaccines (2 - Td or Tdap) 01/18/2032 01/17/2022, 11/13/2011 RSV Patients and Patients Aged 60 years or older (1 - 1-dose 75+ series) 2040 Influenza Vaccine Completed 07/09/2024, , 06/27/2022, Additional history exists COVID-19 Vaccine Completed 07/31/2024, , 07/06/2022, Additional history exists HIB Vaccines Aged Out No longer eligi ble based on patient's age to complete this topic HPV Vaccines Aged Out No longer eligi ble based on patient's age to complete this topic Hepatitis A Vaccines Aged Out No long er eligible based on patient's age to complete this topic IPV Vaccines Aged Out No longer eligi ble based on patient's age to complete this topic Meningococcal B Vaccine Aged Out No l onger eligible based on patient's age to complete this topic Meningococcal Vaccine Aged Out No bibi ton eligible based on patient's age to complete this topic RSV under 20 months Aged Out No longe r eligible based on patient's age to complete this topic Rotavirus Vaccines Aged Out No longer eligible based on patient's age to complete this topic Procedures Procedure Name Priority Date/Time Associated Diagnosis Comments LIMITED ORAL EVALUATION - PROBLEM FOCUSED Routine 12/26/2024 2:00 PM EDT 31 O COMPOSITE FILLING Routine 5 12:00 AM EDT 19 O COMPOSITE FILLING Routine 5 12:00 AM EDT 18 O COMPOSITE FILLING Routine 5 12:00 AM EDT 15 O COMPOSITE FILLING Routine 5 12:00 AM EDT 14 O COMPOSITE FILLING Routine 5 12:00 AM EDT 3 O COMPOSITE FILLING Routine 12/26/2024 12:00 AM EDT 2 O COMPOSITE FILLING Routine 12/26/2024 12:00 AM EDT PROPHYLAXIS - ADULT Routine 01/15/2024 1:00 PM ED T Dental plaque from Last 3 Months or Most Recently Relevant to Health Maintenance Insurance Care Teams Circuits Engineer Relationship Specialty Start Date End Date Jimbo Kimble MD [address] [place] [id number] PCP - General Internal Medicine 02/10/19
--- OUTSIDE RECORDS SUMMARY | 2025-02-19 10:03 | XMS_ITS | Encounter Summary ---
Author Organization [employer] Address [address] [facility] 7t [place] [address] Care Team Providers Care Retail Marketing Manager Name Role Phone Jimbo Kimble MD Primary Care Provider [phone] Reason for Visit * Reason Comments Foot Pain Encounter Details Date Type Department Care Team (Late st Contact Info) Description 02/19/2025 9:00 AM EDT Office Visit [facility] [address] [place] [address] Great toe pain, right (Primary Dx); Pain of left great toe Social History Tobacco Use Types Packs/Day Years Used Date Smoking Tobacco: Never Smokeless Tobacco: Never Comments Unknown Sex and Gender Information Value Date Recorded Sex Assigned at Female 08/07/2022 10:35 AM EDT Legal Sex Female 10:35 AM EDT Gender Identity Female 08/07/2022 10:35 AM EDT Sexual Orientation Straight 08/07/2022 10 :35 AM EDT documented as of this encounter Last Filed Vital Signs Vital Sign Reading [...] oz) 02/19/2025 9:01 A M EDT Height - - Body Mass Index 21.4 05/11/2022 12:08 AM EDT documented in this encounter Plan of Treatment Upcoming Encounters Date Type Department Care Team (Late st Contact Info) Description 04/07/2025 2:00 PM EDT Office Visit [facility] [address] [place] [address] Porsche [place] Scheduled Orders Name Type Priority Associated Diagnoses Orde r Schedule Sed Rate by Modified Westergren Lab Routine Pain of left great toe Expected: 02/19/2025, Expires: 02/19/2026 Uric acid Lab Routine Pain of left great toe Expected: 02/19/2025 (Approximate), Expires: 02/19/2026 XR Toes 2+ Views Right Imaging STAT Great toe pain, right Expected: 02/19/2025, Expires: 02/19/2026 documented as of this encounter Procedures Procedure Name Priority Date/Time Associated Diagnosis Comments XR TOES 2+ VIEWS RIGHT STAT 02/19/2025 9:26 AM EDT documented in this encounter Results * XR Toes 2+ Views Right (02/19/2025 9:26 AM EDT) Anatomical Region Laterality Modality Lower Extremities, Toes Left Radiogra phic Imaging 02/19/2025 9:26 AM EDT Narrative 02/19/2025 10:02 AM EDT ?[facility] ?[address] ?[place] [address] ?XRay Report ? Signed ? Patient: Ezekiel,Remedios Luna ?MR#: M ?? [id number] ? : 1965 ?Acct:[id number] ? Age/Sex: 59 / F ?ADM Date: /15/25 ? Loc: HO.HHCX ? Attending DrJuan Hayden DO ? Ordering Physician: Mariella Hayden DO ?? Date of Service: 02/19/25 ?? Procedure(s): XR toe RT min 2V ?? Accession Number(s): [id number] ? cc: Mariella Hayden DO ? EXAMINATION: ??XR TOES 2 OR MORE VIEWS RIGHT ? HISTORY: acute pain swelling base of great toe ? COMPARISON: There are no prior studies available for comparison. ? FINDINGS: ? Three views of the right great toe are submitted. ??Osseous ?? mineralization is normal. ??There is no fracture or dislocation. ??There ?? is mild narrowing of the interphalangeal joint. ??The soft tissues are ?? unremarkable. ? XR/XR toe RT min 2V ?? IMPRESSION: ? Mild narrowing of the interphalangeal joint. No evidence of fracture of ?? the right great toe. ? Electronically signed by: ??Oscar Palmer MD ??02/19/2025 09:59 AM EDT ? Dictated By: ?Oscar Palmer MD ? Signed By: ?<Electronically signed by Oscar Palmer MD in OV> ?02/19/25 0959 ? DD/ 0926 ? TD/TT: 02/19/25 0953 ? Lunchroom Food Service Supervisor: ? Procedure Note Donalyshanikoleter, Image - 02/19/2025 [place] [address] XRay Report Signed Patient: Remedios Falcon#: M [id number] : 1965Acct:[id number] Age/Sex: 59 / FADM Date: 02/19/25 Loc: HO.HHCX Attending Dr: Mariella Hayden DO Ordering Physician: Mariella Hayden DO Date of Service: 02/19/25 Procedure(s): XR toe RT min 2V Accession Number(s): [id number] cc: Mariella Hayden DO EXAMINATION: XR TOES 2 OR MORE VIEWS RIGHT HISTORY: acute pain swelling base of great toe COMPARISON: There are no prior studies available for comparison. FINDINGS: Three views of the right great toe are submitted. Osseous mineralization is normal. There is no fracture or dislocation. There is mild narrowing of the interphalangeal joint. The soft tissues are unremarkable. XR/XR toe RT min 2V IMPRESSION: Mild narrowing of the interphalangeal joint. No evidence of fracture of the right great toe. Electronically signed by: Oscar Palmer MD 02/19/2025 09:59 AM EDT Dictated By: Oscar Palmer MD Signed By: <Electronically signed by Oscar Palmer MD in OV> 02/19/25 0959 DD/ 5 TD/TT: 02/19/2553 Lunchroom Food Service Supervisor: us Mariella Hayden DO IMG XR PROCEDURES Final Resu lt documented in this encounter Visit Diagnoses Diagnosis Great toe pain, right- Primary Pain of left great toe documented in this encounter Care Teams Retail Marketing Manager Relationship Specialty Start Date End Date Jimbo Kimble MD [address] [place] [address] PCP - General Internal Medicine 02/10/19 documented as of this encounter
== END 2025-02-19 09:26 | disposition home or self-care (01) ==
LOC: HO.HHCX 09:25
PROVIDERS: Visit Provider Family Medicine
DX: M79.674 Pain in right toe(s) (principal)
CPT/HCPCS: 73660

== ENCOUNTER → 2025-02-19 09:26 | Outpatient (BNV) | payer OTHER, SELFPAY | PROVIDERS: Visit Provider Radiology Diagnostic Radiology | DX: M20.21 Hallux rigidus, right foot (principal) | CPT/HCPCS: 73660 ==

== ENCOUNTER 2025-02-19 09:46 | Outpatient (REF) | payer OTHER, SELFPAY ==
--- OUTSIDE RECORDS SUMMARY | 2025-02-19 10:38 | XMS_ITS | Clinical Summary ---
Author Organization [employer] Address [address] [facility] [address] 7t [place] [address] Care Team Providers Care Industrial Safety And Health Technician Name Role Phone Jimbo Kimble MD Primary Care Provider [phone] Allergies Active Allergy Reactions Criticality Noted Date [...] Description 02/19/2025 9:00 AM EDT Office Visit [facility] [address] [place] [address] Great toe pain, right (Primary Dx); Pain of left great toe 12/26/2024 2:00 PM EDT Office Visit [facility] [address] [place] [address] Eb Torres, ARLEN Hyperthyroiditis (Primary Dx) 12/25/2024 [...] Description 04/07/2025 2:00 PM EDT Office Visit [facility] [address] [place] [address] TheePorsche santoyo Health Maintenance Due Date Last [...] 12/17/2015 Dental Prophylaxis 07/17/2024 01/15/2024 Tobacco Screening 02/19/2026 02/19/2025 Mammogram 10/10/2026 10/10/2024, 010 12/2024, 01/24/2022, Additional [...] VIEWS RIGHT STAT 02/19/2025 9:26 AM EDT LIMITED ORAL EVALUATION - PROBLEM FOCUSED Routine 12/26/2024 2:00 PM EDT 31 O COMPOSITE FILLING Routine 12/26/2024 12:00 AM EDT 19 O COMPOSITE FILLING Routine 12/26/2024 12:00 AM EDT 18 O COMPOSITE FILLING Routine 12/26/2024 12:00 AM EDT 15 O COMPOSITE FILLING Routine 12/26/2024 12:00 AM EDT 14 O COMPOSITE FILLING Routine 12/26/2024 12:00 AM EDT 3 O COMPOSITE FILLING Routine 12/26/2024 12:00 AM EDT 2 O COMPOSITE FILLING Routine 12/26/2024 12:00 AM EDT PROPHYLAXIS - ADULT Routine 01/15/2024 1 :00 PM EDT Dental plaque from Last 3 Months or Most Recently Relevant to Health Maintenance Results * XR Toes 2+ Views Right (02/19/2025 9:26 AM EDT) Anatomical Region Laterality Modality Lower Extremities, Toes Left Radiogra [facility] 02/19/2025 9:26 AM EDT Narrative 02/19/2025 10:02 AM EDT ?[facility] ?[address] ?[place] [address] ?XRay Report ? Signed ? Patient: Odair,Remedios Cheryl ?MR#: M ?? [id number] ? : 1965 ?Acct:[id number] ? Age/Sex: 59 / F ?ADM Date: 02/19/25 ? Loc: HO.HHCX ? Attending Dr: Mariella Hayden DO ? Ordering Physician: Mariella Hayden DO ?? Date of Service: 02/19/25 ?? Procedure(s): XR toe RT min 2V ?? Accession Number(s): [id number] ? cc: Mariella Hayden DO ? EXAMINATION: [...] DD/ 0926 ? TD/TT: 02/19/25 0953 ? College Recruiter: ? Procedure Note Marisa, Tessie - 02/19/[address] [address] XRay Report Signed Patient: Remedios Falcon#: M [id number] : 1965Acct:[id number] Age/Sex: 59 / FADM Date: 02/19/25 Loc: HO.HHCX Attending Dr: Mariella Hayden DO Ordering Physician: Mariella Hayden DO Date of Service: 02/19/25 Procedure(s): XR toe RT min 2V Accession Number(s): [id number] cc: Mariella Hayden DO EXAMINATION: XR TOES [...] Oscar Palmer MD 02/19/2025 09:59 AM EDT RP Dictated By: Oscar Palmer MD Signed By: <Electronically signed by Oscar Palmer MD in OV> 02/19/25 0959 DD/ 5 TD/TT: 02/19/2553 College Recruiter: Mariella Hayden DO IMG XR PROCEDURES Final Resu lt from Last 3 Months Insurance , [address] [place] [address] Care Teams Industrial Safety And Health Technician Relationship Specialty Start Date End Date Jimbo Kimble MD [address] [place] [address] PCP - General Internal Medicine 02/10/19
--- OUTSIDE RECORDS SUMMARY | 2025-02-19 10:38 | XMS_ITS | Encounter Summary ---
Author Organization [employer] Address [address] [facility] 7t [place] [address] Care Team Providers Care Director Of Online Merchandising Name Role Phone Jimbo Kimble MD Primary Care Provider [phone] Reason for Visit * Reason Comments Foot Pain Encounter Details Date Type Department Care Team (Late st Contact Info) Description 02/19/2025 9:00 AM EDT Office Visit [facility] [address] [place] [address] Great toe pain, right (Primary Dx); Pain [...] Description 04/07/2025 2:00 PM EDT Office Visit [facility] [address] [place] [address] [place]orsche [place] Scheduled Orders Name Type Priority [...] AM EDT Narrative 02/19/2025 10:02 AM EDT ?[facility] ?[address] ?[place] [address] ?XRay Report ? Signed ? Patient: Ezekiel,Remedios Luna ?MR#: M ?? [id number] ? : 1965 ?Acct:[id number] ? Age/Sex: 59 / F ?ADM Date: /15/25 ? Loc: HO.HHCX ? Attending DrJuan Hayden DO ? Ordering Physician: Mariella Hayden DO ?? Date of Service: 02/19/25 ?? Procedure(s): XR toe RT min 2V ?? Accession Number(s): [id number] ? cc: Mariella Hayden DO ? EXAMINATION: [...] DD/ 0926 ? TD/TT: 02/19/25 0953 ? It Consulting Director: ? Procedure Note Donalyshanikoleter, Image - 02/19/2025 [place] [address] XRay Report Signed Patient: Remedios Falcon#: M [id number] : 1965Acct:[id number] Age/Sex: 59 / FADM Date: 02/19/25 Loc: HO.HHCX Attending Dr: Mariella Hayden DO Ordering Physician: Mariella Hayden DO Date of Service: 02/19/25 Procedure(s): XR toe RT min 2V Accession Number(s): [id number] cc: Mariella Hayedn DO EXAMINATION: XR TOES 2 OR MORE [...] OV> 02/19/25 0959 DD/ 5 TD/TT: 02/19/2553 It Consulting Director: us Mariella Hayden DO IMG XR PROCEDURES Final Resu lt documented in this encounter Visit Diagnoses Diagnosis Great toe pain, right- Primary Pain of left great toe documented in this encounter Care Teams Director Of Online Merchandising Relationship Specialty Start Date End Date Jimbo Kimble MD [address] [place] [address] PCP - General Internal Medicine 02/10/19 documented as of this encounter
[2025-02-19 11:59] LABS: Uric Acid 4.7 mg/dL (2.4-5.7)
[2025-02-19 12:26] LABS: Erythrocyte Sedimentation Rate 6 MM/HR (0-20)
== END 2025-02-19 09:47 | disposition home or self-care (01) ==
LOC: HO.HHCL 09:46
PROVIDERS: Visit Provider Family Medicine
DX: M79.675 Pain in left toe(s) (principal)
CPT/HCPCS: 36415; 84550; 85652

== ENCOUNTER 2025-05-21 10:14 | Outpatient (REF) | payer OTHER, SELFPAY ==
--- OUTSIDE RECORDS SUMMARY | 2025-05-21 11:01 | XMS_ITS | Clinical Summary ---
Author Organization [employer] Address [address] [facility] 7t [place] [address] Care Team Providers Care Medical Device Assembler Name Role Phone Jimbo Kimble MD Primary Care Provider [phone] Allergies Active Allergy Reactions Criticality Noted Date Comments Wound Dressing Adhesive Rash Low 04/07/2025 Medications Prucalopride Succinate (Motegrity) 2 MG tablet Take by mouth. Active levothyroxine (Synthroid, Levoxyl) 25 MCG tablet Take by mouth before breakfast. Active Active Problems Problem Noted Date Diagnosed Date Hyperthyroiditis 12/26/2024 Achilles tendinitis 12/26/2024 Anxiety 12/26/2024 Disorder of intestine 12/26/2024 Disorder of thyroid 12/26/2024 Irritable bowel syndrome 12/26/2024 Migraine headache 12/26/2024 Malignant melanoma 12/04/2024 Insomnia 09/12/2023 Menopausal symptom 09/12/2023 Unspecified menopausal and perimenopausal disord er 09/12/2023 Vaginal dryness 09/12/2023 Lesion of cervix 08/12/2019 Primary localized osteoarthritis of hip 08/12/20 19 Acquired hypothyroidism 05/03/2018 Encounters Date Type Department Care Team Description 04/07/2025 2:00 PM EDT Office Visit [facility] [address] [place], [place] [phone] Melia Correa 04/01/2025 Travel 02/19/2025 9:00 AM EDT Office Visit [facility] [address] [place], [place] [phone] Jurcsak, Mariella, DO Great toe pain, right (Primary Dx); Pain of left great toe from Last 3 Months Immunizations Immunization Administration [...] Sign Reading Time Taken Comments Blood Pressure 112/58 04/07/2025 2:03 PM EDT Pulse 65 02/19/2025 9:01 AM EDT Temperature 36.8 C (98.2 F) 02/19/2025 9:01 AM EDT Respiratory Rate 16 02/19/2025 9:01 AM EDT Oxygen Saturation 99% 02/19/2025 9:01 AM EDT Inhaled Oxygen Concentration - - Weight 60.1 kg (132 lb 9.6 oz) 02/19/2025 9:01 A M EDT Height 167.6 cm (5' 6 ) 05/11/2022 12:08 AM EDT Body Mass Index 21.4 05/11/2022 12:08 AM EDT Plan of Treatment Health Maintenance Due Date Last Done Comments CT Colonography 1965 Colonoscopy 1965 Colorectal Cancer Screening 1965 Dental Oral Exam 1965 Dental X-Ray: Bitewings 1965 Dental X-Ray: Full Mouth 1965 Depression Screening 1965 FIT DNA/Cologuard 1965 FIT 1965 FOBT 1965 HIV Screening 1965 SDOH Screening 1965 Sigmoidoscopy 1965 Disability Screening 1965 Derm Melanoma Skin Check 1965 Alcohol/Substance Use Screening 1977 Hepatitis C Screening 1983 Hepatitis B Vaccines (1 of 3 - 19+ 3-dose series) 1984 Pap Smear 1986 Cervical Cancer Screening 1995 HPV/Cotest 1995 Pneumococcal Vaccine: 50+ Years (1 of 1 - PCV) 2015 Zoster Vaccines (3 of 3) 05/15/2025 03/20/2025, 12/06 Influenza Vaccine (#1) 2025 , 06/28/2023, 06/27/2022, Additional history exists Dental Prophylaxis 10/09/2025 04/07/2025, 01/15/2024 Tobacco Screening 04/07/2026 04/07/2025 Mammogram 10/10/2026 10/10/2024, 12/2024, 01/24/2022, Additional history exists DTaP/Tdap/Td Vaccines (2 - Td or Tdap) 01/18/2032 01/17/2022, 11/13/2011 RSV Patients and Patients Aged 60 years or older (1 - 1-dose 75+ series) 2040 COVID-19 Vaccine Completed 07/31/2024, , 07/06/2022, Additional [...] Procedure Name Priority Date/Time Associated Diagnosis Comments PROPHYLAXIS - ADULT Routine 04/07/2025 2 :00 PM EDT URIC ACID Routine 02/19/2025 9:48 AM EDT Pain of left great toe SED RATE BY MODIFIED WESTERGREN Routine 02/19/2025 9:48 AM EDT Pain of left great toe XR TOES 2+ VIEWS RIGHT STAT 02/19/2025 9:26 AM EDT from Last 3 Months Results * Sed Rate by Modified Westergren (02/19/2025 9:48 AM EDT) Erythrocyte Sedimentation Rate 6 0 - 20 MM/HR [facility] Comment:Patients with polycy themia and many hemoglobin abnormalitiesmay have depressed sed rates whereas patients with anemiamay have elevated sed rates. Blood Venous blood specimen / Unknown 02/19/2025 9:48 AM EDT 02/19/2025 11:33 AM EDT Mariella Hayden DO LAB BLOOD ORDERABLES Final R esult [facility] [address] [place] [phone] * Uric acid (02/19/2025 9:48 AM EDT) Uric Acid 4.7 2.4 - 5.7 mg/dL [facility] Blood Venous blood specimen / Unknown 02/19/2025 9:48 AM EDT 02/19/2025 11:33 AM EDT Mariella Hayden DO LAB BLOOD ORDERABLES Final R esult [facility] [address] [place] [address] [phone] * XR Toes 2+ Views Right (02/19/2025 9:26 AM EDT) Anatomical Region Laterality Modality Lower Extremities, Toes Left Radiogra phic Imaging 02/19/2025 9:26 AM EDT Narrative 02/19/2025 10:02 AM EDT [address] [address] XRay Report Signed Patient: Remedios Falcon MR#: M [id number] : 1965 Acct:[id number] Age/Sex: 59 / F ADM Date: 02/19/25 Loc: .HHCX Attending Dr: Mariella Hayden DO Ordering Physician: Mariella Hayden DO Date of Service: 02/19/25 Procedure(s): XR toe RT min 2V Accession Number(s): [id number] cc: Mariella Hayden DO EXAMINATION: XR TOES [...] in OV> 02/19/25 0959 DD/ 5 TD/TT: 02/19/25 0953 All Round Butcher: Procedure Note Donotuseinterpreter, Image - 02/23/[address] [address] XRay Report Signed Patient: Remedios Falcon#: M [id number] : 1965Acct:[id number] Age/Sex: 59 / FADM Date: 02/19/25 Loc: HO.HHCX Attending Dr: Mariella Hayden DO Ordering Physician: Mariella Hayden DO Date of Service: 02/19/25 Procedure(s): XR toe RT min 2V Accession Number(s): [id number] cc: Mariella Hayden DO EXAMINATION: XR TOES [...] Palmer MD in OV> 02/19/25 0959 DD/ 0926 TD/TT: 02/19/25 0953 All Round Butcher: Mariella Hayden DO IMG XR PROCEDURES Edited Res ult - Final from Last 3 Months Insurance [facility] Care Teams Medical Device Assembler Relationship Specialty Start Date End Date Jimbo Kimble MD [address] [place] [address] PCP - General Internal Medicine 02/10/19
--- OUTSIDE RECORDS SUMMARY | 2025-05-21 11:01 | XMS_ITS | Encounter Summary ---
Author Organization [facility] Address [address] [place] [phone] Phone Care Team Providers Care Lunchroom Mother Name Role Phone Burke Valentine MD Unavailable [phone] Ramya Harmon MD Unavailable [phone] Robin Kulkarni MD Unavailable [phone] Vicenta Vela GUEST SERVICES LEAD Unavailable Marissa Haddad GUEST SERVICES LEAD Unavailable [phone] Abby Glass MD Primary Care Provider [phone] Brittny Tiwari MD Primary Care Provider [phone] Encounter Details Date Type Department Care Team (Latest Contact Info) Description 08/27/2020 Transcribe Orders Virtual Department [address] [place] [address] Abby Glass MD [address] [place] [phone] [email or web address] Nonintractable headache, unspecified chronicity pattern, unspecified headache type (Primary Dx); Fatigue, unspecified type Social History Tobacco Use Types Packs/Day Years Used Date Smoking Tobacco: Never Smokeless Tobacco: Never Alcohol Use Standard Drinks/Week Comments Yes 6 (1 standard drink = 0.6 oz pur e alcohol) Comments Unknown Sex and Gender Information Value Date Recorded Sex Assigned at Not on file Legal Sex Female 9:41 PM EDT Gender Identity Not on file Sexual Orientation Not on file documented as of this encounter Plan of Treatment Not on file documented as of this encounter Results * COVID-19 PCR Order (08/29/2020 8:09 AM EST) COVID Testing Status Specimen received in analyzing lab. [facility] Symptomatic? YES [facility] Other 08/29/2020 8:09 AM EST 08/31/2020 2:10 PM EST us Abby Glass MD BODY FLUIDS AND STOOLS [facility] Final Result [facility] [address] [place], [place] [phone] [facility] [address] [place] [phone] documented in this encounter Visit Diagnoses Diagnosis Nonintractable headache, unspecified chronicity pattern, unspecified headache type- Primary Fatigue, unspecified type documented in this encounter Additional Health Concerns Infection Onset Date Last Indicated Resolved Time CoV-Risk 08/27/2020 08/29/2020 09/10/2020 1:24 AM EST Assessment Noted Time PHQ-2 Depression Total Score: 0 08/12/20 3:13 PM EST documented as of this encounter Care Teams Lunchroom Mother Relationship Specialty Start Date End Date Abby Glass MD [address] [place] [phone] [email or web address] PCP - General Internal Medicine 08/25/19 01/23/22 Brittny Tiwari MD [address] [place] [phone] PCP - General Family Medicine 01/24/22 Burke Valentine MD [address] [place] [address] Historical LMR Provider 07/29/17 Ramya Harmon MD [address] [place] [address] Orthopedics & Sports Medicine, [facility] [place] [address] Historical LMR Provider 07/29/17 Robin Kulkarni MD [address] [place] [address] Historical LMR Provider 07/29/17 Vicenta Vela NP [address] [place] [address] Historical LMR Provider 07/29/17 2 Marissa Haddad NP [address] [place] [address] [email or web address] Historical LMR Provider 07/29/17 documented as of this encounter Additional Source Comments The information contained in this document represents components of the legal health record. It is not the complete legal health record.[facility]
== END 2025-05-21 10:15 | disposition home or self-care (01) ==
LOC: HO.HHCL 10:14
PROVIDERS: PCP Family Medicine; Visit Provider Nurse Practitioner Primary Care
DX: E03.9 Hypothyroidism, unspecified (principal)
CPT/HCPCS: 36415; 84443